=== PATIENT | male | born 1975 | race Caucasian/White ===

== ENCOUNTER 2018-04-05 15:46 | Emergency (ER) | payer BC, OTHER ==
[~2018-04-05] VITALS: Ht 188 cm; Wt 145.1 kg
[2018-04-05] MEDS ORDERED: PIPERACILLIN SODIUM/TAZOBACTAM 3.375 G in IV DEXTROSE 5% 50 ML IV ONE (16:15)
[2018-04-05] MEDS ORDERED: VANCOMYCIN IV 1,000 MG in IV DEXTROSE 5% 250 ML IV ONE (16:15)
[2018-04-05] MEDS ORDERED: VANCOMYCIN IV 200 ML ONE (16:28)
[2018-04-05] MEDS ORDERED: PIPERACILLIN/TAZOBACTAM/D5W 50 ML IV ONE (16:29)
[2018-04-05 16:33] LABS: POTASSIUM 3.5 mmol/L (3.5-5.1)
[2018-04-05 16:34] LABS: BASOPHILS # (AUTO) 0.1 K/uL (0.0-8.0); BASOPHILS % (AUTO) 0.7 % (0.0-2.0); EOSINOPHILS # (AUTO) 0.2 K/uL (0.0-0.7); EOSINOPHILS % (AUTO) 2.1 % (0.0-7.0); HEMATOCRIT 43.3 % (36.7-47.1); MEAN CORPUSCULAR HEMOGLOBIN 29.7 uug (23.8-33.4); MEAN CORPUSCULAR HGB CONC 35 g/dL (32.5-36.3); MEAN CORPUSCULAR VOLUME 85.8 fL (73.0-96.2); MONOCYTES % (AUTO) 9.2 % (0.0-11.0); NEUTROPHILS # (AUTO) 7.2 K/uL (1.8-8.9); PLATELET COUNT (AUTO) 195 K/uL (152-348); RED BLOOD CELL COUNT(AUTO) 5.05 MIL/uL (4.06-5.63); WHITE BLOOD COUNT (AUTO) 10.5 K/uL (3.6-10.2)
[2018-04-05 16:38] LABS: BILIRUBIN,DIRECT 0.2 mg/dL (0.0-0.2); BILIRUBIN,TOTAL 0.7 mg/dL (0.2-1.0)
--- NOTE | 2018-04-05 17:00 | NUR ---
PT GOT ADMITTED BY [facility] PER INSURANCE. WILL BE NOTIFIED WITH TRANSFER DETAILS. AUTHORIZATION FOR [employer] TRANSFER PROVIDED BY INSURANCE SERVICE IS [phone]
[2018-04-05] MEDS ORDERED: ENOXAPARIN SODIUM 30 MG/0.3 ML DISP.SYRIN SUBCUT ONE (17:15)
[2018-04-05] MEDS ORDERED: ENOXAPARIN SODIUM 40 MG/0.4 ML DISP.SYRIN SQ ONE (17:18)
[2018-04-05] MEDS ORDERED: ENOXAPARIN SODIUM 80 MG/0.8 ML DISP.SYRIN SQ ONE (17:18)
--- NOTE | 2018-04-05 18:26 | NUR ---
[facility] PROVIDED FOR PT.
--- NOTE | 2018-04-05 18:56 | NUR ---
CALLED [facility] FOR TRANSFER DETAILS. PER YOBANY AT TRANSFER CENTER, PT WILL BE GOING TO [place] [id number], REPORT NUMBER IS [phone]. CALLED [facility] FOR TRANSFER, [address], TRIP NUMBER [id number]
--- NOTE | 2018-04-05 19:05 | NUR ---
HANDSS OFF REPORT GIVEN TO CAROLE NOEL
--- NOTE | 2018-04-05 19:13 | NUR ---
Pt is in bed, aaox4. bilateral redness/swelling in lower extremities. Pending transfer to [facility]. ETA @ 1866.
--- NOTE | 2018-04-05 19:40 | NUR ---
Observed pt eating sandwich. Pt has 2 visitors at bedside at this time.
--- NOTE | 2018-04-05 19:58 | NUR ---
Gave report to CAORLE Mcgowan at [facility] regarding pt admission to room 5536. Admitting MD is Dr. Salguero.
--- NOTE | 2018-04-05 20:54 | NUR ---
[facility] [address] here to transport pt to [facility].
--- NOTE | 2018-04-05 21:00 | NUR ---
Patient Tranfers to [facility]. Admitting MD: Dr. Salguero. Report given to Roslyn. Pt in stable condition. Pt denies chest pain/sob. Denies any other c/o. VSS.
== END 2018-04-05 21:16 | disposition short-term general hospital (02) ==
LOC: ER 15:46
DX: L03.116 Cellulitis of left lower limb (principal); I82.402 Acute embolism and thrombosis of unspecified deep veins of left lower extremity
CPT/HCPCS: 36415; 71045; 80048; 80076; 83605; 85025; 85730; 87040 ×2; 93971; 96365; 96366; 96367; 96372; 99285; J1650 ×2; J2543; J3370; A4663